=== PATIENT | male | born 1945 | race American Indian/Alaskan Native ===

== ENCOUNTER 2018-01-11 08:15 | Day surgery (SDC) | payer MEDICARE ==
[2018-01-05 13:39] VITALS: BMI 23.7
[2018-01-11 09:00] VITALS: RESP 18
--- NOTE | 2018-01-11 09:00 | CARD ---
APPROVED REPORT Date of service: 01/11/2018 EKG Measurement Heart [id number] <Conclusion> Normal sinus rhythm Nonspecific T wave abnormality Abnormal ECG
[2018-01-11] MEDS ORDERED: Chlorhexidine Gluconate 2OZ GEL TP ONE (10:24)
[2018-01-11] MEDS ORDERED: cefTRIAXone (Rocephin) 1 gm Inj ONE (10:24)
[2018-01-11] MEDS ORDERED: Lidocaine 2% MPF (5 ml) Inj ONE (11:13)
[2018-01-11] MEDS ORDERED: Propofol 10 mg/ml Inj (20 ML) ONE (11:13)
[2018-01-11] MEDS ORDERED: Lactated Ringer's 1,000 ML IV ONE ×2 (11:18→14:25)
[2018-01-11] MEDS ORDERED: cefTRIAXone (Rocephin) 1 gm Inj IM ONE (11:30)
[2018-01-11] MEDS ORDERED: Dexamethasone 4 mg/1 ml ONE (11:47)
[2018-01-11] MEDS ORDERED: HYDROmorphone 0.5 mg/0.5 ml ISec IVP PRN (12:32)
[2018-01-11] MEDS ORDERED: Lactated Ringer's 1,000 ML IV SCH (12:45)
[2018-01-11 14:42] VITALS: BP 161/85; TEMP 98
[2018-01-11 15:43] VITALS: PULSE 71; O2SAT 97
--- NOTE | 2018-01-12 06:25 | OP ---
Copied To: Sara Gold MD Attending MD: Sara Gold MD PROCEDURE DATE: 01/11/2018 PREOPERATIVE DIAGNOSES: Urinary retention and benign prostatic hypertrophy. POSTOPERATIVE DIAGNOSES: Urinary retention and benign prostatic hypertrophy. PROCEDURE: GreenLight laser of the prostate. DESCRIPTION OF PROCEDURE: The patient was placed on the operating room table in dorsal lithotomy position. After he was given general anesthesia, the area of the groin was draped and prepped in a sterile manner. Using a laser scope, I entered into the bladder under direct vision. At this time I identified the adenoma that need to be resected and I used laser fiber to start and finish the procedure. Started at 80-W, finished at a 180-W, delivered about 325,000 joules of energy. The adenoma was approximately 87 g in size. There was minimal bleeding during the procedure, less than 20 mL. At the end of the procedure, I removed the instrumentation, ureteral orifices were seen. The verumontanum was circumferentially intact and a #22 three-way Draper catheter was inserted atraumatically into the bladder. The initial outflow was practically clear. The patient was taken from the operating room in good condition. Sara Gold MD
== END 2018-01-11 16:10 | disposition home or self-care (01) ==
LOC: H.OPSURG 08:15
PROVIDERS: ATTEND Urology
DX: N40.1 Benign prostatic hyperplasia with lower urinary tract symptoms (principal); I10 Essential (primary) hypertension; R33.8 Other retention of urine
CPT/HCPCS: 52648; 93005; J0696; J1100; J2405; J2704; J3010; J7030; J7120